=== PATIENT | female | born 1955 | race Caucasian/White ===

== ENCOUNTER 2022-02-07 12:53 | Emergency (ER) | payer MEDICARE, OTHER ==
[~2022-02-07] VITALS: Ht 157.5 cm; Wt 56.2 kg
[2022-02-07 13:41] LABS: MEAN CORPUSCULAR HEMOGLOBIN 27.5 uug (24.7-32.8); MEAN CORPUSCULAR VOLUME 82.8 fL (75.5-95.3); PLATELET COUNT (AUTO) 318 K/uL (179-408)
[2022-02-07 13:46] LABS: POTASSIUM 3.7 mmol/L (3.5-5.1)
--- NOTE | 2022-02-07 15:59 | NUR ---
Patient discharged to home in stable condition. Written and verbal after care instructions given. Patient verbalizes understanding of instructions. Stressed follow up or return to ER for worsening s/s.
== END 2022-02-07 16:00 | disposition home or self-care (01) ==
LOC: ER 12:53
DX: I49.1 Atrial premature depolarization (principal); R00.2 Palpitations
CPT/HCPCS: 36415; 71045; 84443; 84484; 85025; 93005; A4663